=== PATIENT | female | born 1985 | race Caucasian/White ===

== ENCOUNTER 2018-09-07 18:12 | Observation (INO) ==
[2018-09-07 19:11] LABS: Amphetamine Screen,Urine Negative ng/mL (Cutoff=1000); Barbiturate Screen,Urine Negative ng/mL (Cutoff=200); Benzodiazepines Screen,Urine Negative ng/mL (Cutoff=200); Cannabinoid Screen,Urine Negative ng/mL (Cutoff = 50); Cocaine Screen,Urine Negative ng/mL (Cutoff= 300); Opiate Screen,Urine Negative ng/mL (Cutoff=300); Phencyclidine Screen,Urine Negative ng/mL (Cutoff=25)
--- NOTE | 2018-09-07 20:48 | Discharge Summary ---
Date of Encounter: 09/07/18 Time of Encounter: 20:46 - Discharge Diagnosis (1) 28 weeks gestation of Priority: Primary Status: Acute Comments: Follow-up with Dr. Daniels as scheduled labor precautions discussed Discharge home (2) Fall Priority: Secondary Status: Acute Comments: Return for concerns with movement, leakage of fluid, vaginal bleeding, contractions Qualifiers: Encounter type: subsequent encounter Qualified Code(s): W19.XXXD - Unspecif ied fall, subsequent encounter - Discharge Medications Home Medications: Docusate [Colace] 1 cap PO DAILY 09/07/18 [History] Folic Acid 1 tab PO DAILY 09/07/18 [History] Pnv95/Ferrous Fumarate/FA [ Vitamin Tablet] 1 tab PO DAILY 09/07/18 [History] Allergies/Adverse Reactions: Allergy/AdvReac Type Severity Reaction Status Date / Time No Known Allergies Allergy Verified 09/07/18 18:27 Data Procedures and tests throughout hospitalization: Laboratory Tests 09/07/18 09/07/18 18:45 18:45 Volume Blood 0 Urine Opiates Screen Negative Ur Barbiturates Screen Negative Ur Phencyclidine Scrn Negative Ur Amphetamines Screen Negative U Benzodiazepines Scrn Negative Urine Cocaine Screen Negative U Marijuana (THC) Screen Negative Ur Drug Screen Interp See Below Labs on day of discharge: Labs from last 24 hours 09/07/18 09/07/18 18:45 18:45 Volume Blood 0 Urine Opiates Screen Negative Ur Barbiturates Screen Negative Ur Phencyclidine Scrn Negative Ur Amphetamines Screen Negative U Benzodiazepines Scrn Negative Urine Cocaine Screen Negative U Marijuana (THC) Screen Negative Ur Drug Screen Interp See Below Date of admission: 09/07/18 18:12 Discharging clinician: Lacy Vargas Anticipated date of discharge: 09/07/18 - Patient Status Disposition: Home, Self-Care Condition: Good Functional capacity at discharge: independent ambulation Overall status at discharge: patient is progressing back to baseline - Discharge Instructions Follow Up With: Rafael Daniels MD [Partnered Physician] - - Diet and Activity Activity: increase activity as tolerated Diet: regular diet Hospital Course FAN RUNNER Reason for admission: other Discharge diagnosis: other Hospital course: Patient presents status post fall yesterday. She states she was seen in the emergency room and cleared. She reports concerns of movement today. She was monitored for an extended period of time and further blood work was done indicating a negative traumatic fall. She was discharged with instructions to follow-up with Dr. Daniels is scheduled to return for any future concerns Time Attestation: Total time spent providing and/or coordinating discharge services: Time Spent: Less than 30 minutes Exam - Constitutional General appearance IM: A&O X 3 - Respiratory Respiratory exam: Present: CTAB - Cardiovascular Cardiovascular exam IM: Present: RRR, +S1, +S2 - GI/Abdominal GI/Abdominal exam IM: normal bowel sounds, no peritoneal signs - Rectal Rectal exam: deferred - Uterine Tone: Firm - Extremities Exam Extremities exam IM: Present: normal capillary refill, normal inspection, radial pulses palpable and symmetrical - Neurological Exam Neurological exam: alert, CN II-XII intact, normal gait, oriented X3, reflexes normal, no focal deficits, strengths equal and symetr throughout - VTE Reasons for not Prescribing Prophylaxis: Treatment not Indicated - Low risk for VTE
== END 2018-09-07 21:00 | disposition home or self-care (01) ==
LOC: 1NENULAB
PROVIDERS: ADMIT Advanced Practice Midwife; ATTEND Advanced Practice Midwife

== ENCOUNTER → 2018-09-22 15:13 | Observation (INO) ==
[2018-09-22 12:51] LABS: Bilirubin,Urine Negative (Negative); Blood,Urine Negative (Negative); Clarity,Urine Clear (Clear); Color,Urine Yellow (Yellow); Glucose,Urine (UA) Normal (Normal); Ketones,Urine Negative (Negative); Leukocyte Esterase,Urine Trace (Negative); Nitrite,Urine Negative (Negative); Protein,Urine Negative (Neg-Trace); Specific Gravity,Urine 1.005 (1.010-1.025); Urobilinogen,Urine Normal (Normal)
[2018-09-22 12:53] LABS: Bacteria,Urine None Seen per hpf (None-Few); Hyaline Casts,Urine None Seen per lpf (None-Few); RBC,Urine 0-3 per hpf (0-3); Squamous Epithelial Cell,Urine Many per lpf (None-Few); WBC,Urine 0-3 per hpf (0-3)
[2018-09-22 13:01] LABS: Amphetamine Screen,Urine Negative ng/mL (Cutoff=1000); Barbiturate Screen,Urine Negative ng/mL (Cutoff=200); Benzodiazepines Screen,Urine Negative ng/mL (Cutoff=200); Cannabinoid Screen,Urine Negative ng/mL (Cutoff = 50); Cocaine Screen,Urine Negative ng/mL (Cutoff= 300); Opiate Screen,Urine Negative ng/mL (Cutoff=300); Phencyclidine Screen,Urine Negative ng/mL (Cutoff=25)
--- NOTE | 2018-09-22 14:36 | Discharge Summary ---
Date of Encounter: 09/22/18 Time of Encounter: 14:41 - Discharge Diagnosis (1) 30 weeks gestation of Priority: Primary Status: Acute Comments: Admit to observation status post fall yesterday Follow up as scheduled for routine visit with Dr. Daniels the first week of October (2) Status post fall Priority: Secondary Status: Acute Comments: Patient states she fell yesterday around 1400. States she fell on her knee with no trauma directly to the abdomen Patient is Rh negative, awaiting KB for discharge (3) NST (non-stress test) reactive Priority: Secondary Status: Acute Comments: FHR 130 bpm, moderate variability, +15x15 accels, no decels. - Discharge Medications Home Medications: Docusate [Colace] 1 cap PO DAILY 09/07/18 [History] Folic Acid 1 tab PO DAILY 09/07/18 [History] Pnv95/Ferrous Fumarate/FA [ Vitamin Tablet] 1 tab PO DAILY 09/07/18 [History] Allergies/Adverse Reactions: Allergy/AdvReac Type Severity Reaction Status Date / Time No Known Allergies Allergy Verified 09/07/18 18:27 Data Procedures and tests throughout hospitalization: Laboratory Tests 09/22/18 09/22/18 12:39 12:39 Urine Color Yellow Urine Clarity Clear Urine pH 7.0 Ur Specific Gazelle 1.005 L Urine Protein Negative Urine Glucose (UA) Normal Urine Ketones Negative Urine Blood Negative Urine Nitrite Negative Urine Bilirubin Negative Urine Urobilinogen Normal Ur Leukocyte Esterase Trace H Urine Microscopic RBC 0-3 Urine Microscopic WBC 0-3 Ur Squamous Epith Cells Many H Urine Bacteria None Seen Hyaline Casts None Seen Ur Culture Indicated? NO. A Urine Opiates Screen Negative Ur Barbiturates Screen Negative Ur Phencyclidine Scrn Negative Ur Amphetamines Screen Negative U Benzodiazepines Scrn Negative Urine Cocaine Screen Negative U Marijuana (THC) Screen Negative Ur Drug Screen Interp See Below Labs on day of discharge: Labs from last 24 hours 09/22/18 09/22/18 12:39 12:39 Urine Color Yellow Urine Clarity Clear Urine pH 7.0 Ur Specific Gazelle 1.005 L Urine Protein Negative Urine Glucose (UA) Normal Urine Ketones Negative Urine Blood Negative Urine Nitrite Negative Urine Bilirubin Negative Urine Urobilinogen Normal Ur Leukocyte Esterase Trace H Urine Microscopic RBC 0-3 Urine Microscopic WBC 0-3 Ur Squamous Epith Cells Many H Urine Bacteria None Seen Hyaline Casts None Seen Ur Culture Indicated? NO. A Urine Opiates Screen Negative Ur Barbiturates Screen Negative Ur Phencyclidine Scrn Negative Ur Amphetamines Screen Negative U Benzodiazepines Scrn Negative Urine Cocaine Screen Negative U Marijuana (THC) Screen Negative Ur Drug Screen Interp See Below Date of admission: 09/22/18 12:13 Primary care physician: Nnamdi Domínguez MD Discharging clinician: Gloria Phillip Anticipated date of discharge: 09/22/18 - Patient Status Disposition: Home, Self-Care Condition: Good Functional capacity at discharge: independent ambulation Overall status at discharge: patient is back to baseline - Discharge Instructions Follow Up With: Nnamdi Domínguez MD [Primary Care Provider] - Rafael Daniels MD [Partnered Physician] - - Diet and Activity Activity: resume usual activities as tolerated Diet: regular diet Hospital Course SYSTEM SUPPORT ANALYST Hospital course: Olga is a at 30 weeks and 2 days who comes to labor and delivery after falling yesterday afternoon around 2:00. She endorses decreased movement today, denies vaginal bleeding and leakage of fluid. Patient does state she has an anterior placenta, we discussed that movements may not be as easily felt by her due to this. She states she fell and did not fall directly on her abdomen she did fall onto her knee. She has a follow-up appointment with Dr. Daniels the first week of October. Your is unremarkable and we are awaiting results of her Kleihauer-Betke in order to discharge her home. Time Attestation: Total time spent providing and/or coordinating discharge services: Time Spent: Less than 30 minutes Exam - Constitutional General appearance IM: cooperative, A&O X 3, pleasant, no acute distress, answers questions appropriately - Respiratory Respiratory exam: Present: CTAB - Cardiovascular Cardiovascular exam IM: Present: RRR, +S1, +S2 - GI/Abdominal GI/Abdominal exam IM: normal bowel sounds, soft - Rectal Rectal exam: deferred - Extremities Exam Extremities exam IM: Present: normal capillary refill - Neurological Exam Neurological exam: alert, normal gait, oriented X3 - VTE Reasons for not Prescribing Prophylaxis: Treatment not Indicated - Low risk for VTE
== END | disposition home or self-care (01) ==
LOC: 1NENULAB
PROVIDERS: ADMIT Registered Nurse; ATTEND Registered Nurse

== ENCOUNTER → 2018-11-13 14:07 | Observation (INO) ==
--- NOTE | 2018-11-13 11:37 | OB/GYN Progress Note ---
Date of Encounter: 11/13/18 Time of Encounter: 11:34 - Assessment and Plan (1) 37 weeks gestation of Current Visit: Yes Status: Acute admitted for observation Dr. Lorenzo notified of patient's complaints and status Will monitor for 4 hours post fall (2) Rh negative state in antepartum period Current Visit: Yes Status: Acute KB coags CBC collected (3) Fall Current Visit: No Status: Acute KB NST Coags Qualifiers: Encounter type: subsequent encounter Qualified Code(s): W19.XXXD - Unspecified fall, subsequent encounter Subjective - Subjective Principal diagnosis: Fall Interval history: Patient is a 33 y/o at 37w5d presents to labor and delivery with complaints of tripping over her purse strap and falling to her hands and knees around 1000. Patient denies hitting abdomen. Denies LOF, VB or contractions. Patient reports +FM. Patient denies any complications with but is scheduled for a repeat c/s on 11/27/18. Patient's blood type is O negative. Antepartum ROS: movement normal, no loss of fluid, no vaginal bleeding, no contractions Objective - Exam FHR: auscultation normal, category 1 FHR comments: 135 bpm moderate variability +15x15 accels no decels noted. No contractions noted. Cat. 1 tracing Auscultation: bilateral: normal Abdomen: Present: normal appearance, soft, gravid Uterus: Present: normal (abrasions noted on bilateral knees, no active bleeding noted. )
[2018-11-13 12:07] LABS: INR 0.8; Prothrombin Time 9.4 Seconds (9.4-12.1)
[2018-11-13 12:10] LABS: Activated Partial Thrombo Time 26.6 Seconds (26.0-36.0)
[2018-11-13 12:17] LABS: Amphetamine Screen,Urine Negative ng/mL (Cutoff=1000); Barbiturate Screen,Urine Negative ng/mL (Cutoff=200); Benzodiazepines Screen,Urine Negative ng/mL (Cutoff=200); Cannabinoid Screen,Urine Negative ng/mL (Cutoff = 50); Cocaine Screen,Urine Negative ng/mL (Cutoff= 300); Opiate Screen,Urine Negative ng/mL (Cutoff=300); Phencyclidine Screen,Urine Negative ng/mL (Cutoff=25)
[2018-11-13 14:12] LABS: Basophils % 0.3 %; Eosinophils # 0.1 K/mcL (0.0-0.6); Eosinophils % 0.7 %; Hemoglobin 12.6 g/dL (11.5-15.4); Immature Granulocytes % 0.1 % (0-4); Lymphocytes # 1.3 K/mcL (0.6-4.6); Lymphocytes % 17.8 %; Mean Corpuscular HGB Conc 33.2 g/dL (31.6-35.5); Mean Corpuscular Hemoglobin 29.4 pg (28.0-33.3); Mean Corpuscular Volume 88.8 fL (83.0-100.0); Mean Platelet Volume 11.5 fL (9.4-12.4); Monocytes # 0.5 K/mcL (0.0-1.3); Monocytes % 6.6 %; Neutrophils # 5.5 K/mcL (1.6-8.9); Platelet Count 231 K/mcL (140-400); Red Blood Count 4.28 M/mcL (3.82-4.97); Red Cell Distribution Width 12.5 % (11.5-14.5); Segmented Neutrophils % 74.5 %
== END | disposition home or self-care (01) ==
LOC: 1NENULAB
PROVIDERS: ADMIT Advanced Practice Midwife; ATTEND Advanced Practice Midwife

== ENCOUNTER 2018-11-24 10:10 | Inpatient (IN) ==
[2018-11-24] MEDS ORDERED: Ondansetron 4 MG/2 ML VIAL IVP PRN ×4 (10:56→18:42)
[2018-11-24] MEDS ORDERED: Famotidine 20 MG/2 ML VIAL IVP PRN (10:56)
[2018-11-24] MEDS ORDERED: Metoclopramide 10 MG/2 ML VIAL IVP ONE (10:56)
[2018-11-24] MEDS ORDERED: *HR* Nalbuphine 10 MG/ML AMPUL IVP PRN (10:56)
[2018-11-24] MEDS ORDERED: Ringers Solution, Lactated 1,000 ML IVC ONE (10:56)
[2018-11-24] MEDS ORDERED: Naloxone 0.4 MG/ML INJ IVP PRN (10:56)
[2018-11-24] MEDS ORDERED: CeFAZolin Syr 3,000MG/30 ML 3,000 MG/30 ML SYRINGE IVPB ONE (10:56)
[2018-11-24] MEDS ORDERED: Oxytocin 20 units/ LR 1000 mL 20 UNIT/1,000 ML BAG IVC SCH ×2 (11:00→17:45)
[2018-11-24] MEDS ORDERED: Ringers Solution, Lactated 1,000 ML IVC SCH ×2 (11:00→17:45)
[2018-11-24 12:00] LABS: Basophils % 0.3 %; Eosinophils % 0.4 %; Hematocrit 40.8 % (35.3-44.9); Hemoglobin 13.4 g/dL (11.5-15.4); Immature Granulocytes % 0.2 % (0-4); Lymphocytes # 1.6 K/mcL (0.6-4.6); Lymphocytes % 16.1 %; Mean Corpuscular HGB Conc 32.8 g/dL (31.6-35.5); Mean Corpuscular Hemoglobin 28.9 pg (28.0-33.3); Mean Corpuscular Volume 87.9 fL (83.0-100.0); Mean Platelet Volume 11.4 fL (9.4-12.4); Monocytes # 0.6 K/mcL (0.0-1.3); Monocytes % 6.4 %; Neutrophils # 7.4 K/mcL (1.6-8.9); Platelet Count 237 K/mcL (140-400); Red Blood Count 4.64 M/mcL (3.82-4.97); Red Cell Distribution Width 12.6 % (11.5-14.5); Segmented Neutrophils % 76.6 %
[2018-11-24] MEDS ORDERED: Penicillin G Potassium 5,000,000 UNIT in 0.9 % Sodium Chloride Mini Bag 100 ML IVPB ONE (12:00)
[2018-11-24 12:06] LABS: Protein/Creatinine Ratio,Urine 0.16 mg/mg (0.00-0.20)
[2018-11-24 12:06] LABS: Amphetamine Screen,Urine Negative ng/mL (Cutoff=1000); Barbiturate Screen,Urine Negative ng/mL (Cutoff=200); Benzodiazepines Screen,Urine Negative ng/mL (Cutoff=200); Cannabinoid Screen,Urine Negative ng/mL (Cutoff = 50); Cocaine Screen,Urine Negative ng/mL (Cutoff= 300); Opiate Screen,Urine Negative ng/mL (Cutoff=300); Phencyclidine Screen,Urine Negative ng/mL (Cutoff=25)
[2018-11-24 12:31] LABS: Alanine Aminotransferase 6 Units/L (7-52); Aspartate Amino Transferase 16 Units/L (13-39); BUN/Creatinine Ratio 31 (6-26); Blood Urea Nitrogen 14 mg/dL (6-20); Lactate Dehydrogenase 172 Units/L (140-271); Uric Acid 3.5 mg/dL (2.3-7.6); eGFR For Non-African Americans > 60 (> 60)
[2018-11-24] MEDS ORDERED: *HR* Morphine Sulfate/PF 10 MG/10 ML AMPUL ONE (12:59)
[2018-11-24] MEDS ORDERED: *HR* FentaNYL (PF) 100 MCG/2 ML VIAL ONE (12:59)
--- NOTE | 2018-11-24 13:17 | OB/GYN History & Physical ---
Date of Encounter: 11/24/18 Time of Encounter: 13:16 Assessment and Plan (1) 39 weeks gestation of Current visit: Yes Status: Acute 33 y/o @ 39+3 weeks, h/o PC/S, in labor (cervix changed from FT to 3cm) Plan: RC/S discussed with the patient and consents signed, Anesthesia contacted History of Present Illness HPI: Ms. Whittaker is a 33 year old female @ 39+2 weeks wo presents to the office with ctxs since this AM. She reports ctxs every 7 mins, no LOF, VB or ctxs, feels good FM. She has a h/o of a PC/S for failure to progress. She desires a repeat . Past Med Surg Social Fam HX - Past Medical History Medical history: no medical history Psychiatric history: no psych history - Past Surgical History Surgical History: Additional surgical history: lap band and removal of lap band - Social History Smoking Status: Never smoker Smokeless Tobacco Status: No Alcohol use: none Drug use: none - Family History Mother Living Status: Still Living Hx Family Cardiac Disorders: Yes (hypertension, a fib) Hx Family Respiratory Disorders: No Hx Family Cancer: No Hx Family GI Disorders: No Hx Family Genitourinary Disorders: No Hx Family Endocrine Disorder: No Hx Family Musculoskeletal Disorders: No Hx Family Neuromuscular Disorders: No Hx Family Neurologic Disorders: No Hx Family HEENT Disorders: No Hx Family Autoimmune Disorders: No Hx Family Reproductive Disorders: No Hx Family Psychosocial Disorders: No Hx Family Medical Disorders: Yes (blood clots with filter placement) Obstetrical History - Pregnancies : 3 Para: 1 Medications and Allergies Docusate [Colace] 1 cap PO DAILY PRN 09/07/18 [History] Folic Acid 1 tab PO DAILY 09/07/18 [History] Pnv95/Ferrous Fumarate/FA [ Vitamin Tablet] 1 tab PO DAILY 09/07/18 [History] Allergy/AdvReac Type Severity Reaction Status Date / Time No Known Allergies Allergy Verified 09/07/18 18:27 Review of System OB All systems PM: reviewed and no additional remarkable complaints except as stated Exam - Cervix Dilation: 3 Results Result Diagrams: 11/24/18 10:57 11/24/18 11:35 Abnormal lab results Creatinine 0.45 mg/dL (0.60-1.20) L 11/24/18 11:35 BUN/Creatinine Ratio 31 (6-26) H 11/24/18 11:35 ALT 6 Units/L (7-52) L 11/24/18 11:35 Urine Total Protein 28 mg/dL (1-14) H 11/24/18 11:44 All other labs normal. - VTE Reasons for not Prescribing Prophylaxis: Treatment not Indicated - Low risk for VTE
--- NOTE | 2018-11-24 13:19 | Anesthesia Evaluation PreOp ---
Date of Encounter: 11/24/18 Time of Encounter: 13:17 - Past History Planned Operation: repeat C section Cardiac History: Denies any Significant Hx Pulmonary History: Denies Any Significant HX KAITARA TARAKA History: Denies Any Significant HX Other Medical History: GERD Anesthesia History: No Prior Anesthetic Complications, Past Anesthesia (c/s) : Yes Test: Positive Alcohol Use: none Drug use: none Medications and Allergies Docusate [Colace] 1 cap PO DAILY PRN 09/07/18 [History] Folic Acid 1 tab PO DAILY 09/07/18 [History] Pnv95/Ferrous Fumarate/FA [ Vitamin Tablet] 1 tab PO DAILY 09/07/18 [History] Allergy/AdvReac Type Severity Reaction Status Date / Time No Known Allergies Allergy Verified 09/07/18 18:27 - Meds/Allergy Pre-op Review Medications Reviewed: Yes Allergies Reviewed: Yes Beta Blockers on Current Med List: No Anesthesia Results - Labs 11/24/18 10:57 11/24/18 11:35 Anesthesia Exam - HEENT Pupil (Motor): Pupils equal Mallampati: II Teeth: Normal Oral Opening: Greater than 3 - KAITARA TARAKA LOC: Oriented KAITARA TARAKA Motor: Normal RUE, Normal LUE, Normal RLE, Normal LLE, Normal Face KAITARA TARAKA Sensory: Normal: RUE, LUE, RLE, LLE, Face - Cardiac Rhythm: Regular Murmur: None - Pulmonary Breath Sounds: bilateral Clear Respiratory Effort: Symmetrical Anesthesia Assess/Plan ASA Score: 2 Level of consciousness: Cooperative Anesthetic Plan: Spinal (risks discussed, questions answered, consented) Monitoring Plan: Standard Monitors Recovery Plan: PACU
[2018-11-24] MEDS ORDERED: Lidocaine -MPF 2% 5 ML VIAL ONE ×2 (14:00→14:41)
[2018-11-24] MEDS ORDERED: *HR* Oxytocin 10 UNIT/ML VIAL IM ONE (14:00)
[2018-11-24] MEDS ORDERED: *HR* Propofol 200 MG/20 ML VIAL IVP ONE (14:13)
[2018-11-24] MEDS ORDERED: Ondansetron 4 MG/2 ML VIAL ONE (14:55)
[2018-11-24] MEDS ORDERED: Dexamethasone 4 MG/ML VIAL ONE (14:55)
[2018-11-24] MEDS ORDERED: *HR* OxyCODONE Immed Rel 5 MG TABLET PO PRN (15:01)
[2018-11-24] MEDS ORDERED: Acetaminophen IV 1,000 MG/100 ML INFUS..BTL IVPB ONE (15:01)
[2018-11-24] MEDS ORDERED: *HR* Succinylcholine 200 MG/10 ML VIAL IVP ONE (15:29)
[2018-11-24] MEDS ORDERED: Penicillin G Potassium 2,500,000 UNIT in 0.9 % Sodium Chloride 100 ML IVPB SCH (16:00)
--- NOTE | 2018-11-24 16:13 | OB/GYN Procedure Note ---
Section - Date of procedure: 11/24/18 Preop diagnosis: desires repeat Procedure: repeat low transverse Surgeon: Amanda Lorenzo Quantitated Blood Loss: 400 Was there an assistant center manager present: Yes Leather Stitcher: Colleen García Anesthesiologist: Elvin Guillen Water Pipe Installer: Colten Negron Anesthesia Type: General section complications: none Disposition: L&D Recovery Room Specimens: Placenta, Cord blood - (s) Infant A Delivery Date: 11/24/18 Delivery Time: 14:38 Presentation: vertex Gender: Male Gram Weight: 4.655 kg at 1 minute: 8 at 5 minutes: 9 Shoulder Dystocia: not encountered Specimens collected: cord blood Placenta: complete extraction Cord: 3 umbilical vessels - Narrative Narrative: The patient was brought to the operating room where spinal anesthesia was attempted without success. She was prepped and draped before she was placed under general anesthesia. A Pfannenstiel incision was made and carried sharply down to the level of the fascia. The fascia was incised transversely. The fascia was dissected away from the underlying rectus muscles. With blunt dissection, the rectus muscles were divided in the midline. The peritoneum was entered bluntly. A bladder retractor was placed to protect the bladder. The bladder was noted to be adhesed mainly to the right side of the uterus. A transverse incision was made across the lower uterine segment. The incision was manually extended. Clear amniotic fluid was encountered. The infant's head was pulled up and delivered as were the shoulders and body. The mouth and oropharynx were suctioned. The cord was clamped and cut. The infant was passed off to the waiting nurse in satisfactory condition. The placenta was extracted completely and found to be intact. The uterus was explored and found to be empty. The uterus was delivered through the abdominal incision and massaged vigorously. Intravenous Pitocin was administered. The margins of the uterine incision were closed primarily with a running locking stitch of 0 Vicryl with adequate hemostasis. Secondary running locking stitch was placed for extra strength to the wound. The uterus was returned to its proper anatomic position in the abdomen. The fascia was closed with a simple running stitch of 0 vicryl. The subcutaneous tissue was closed with 3-0 vicryl after irrigation. The skin was closed with running subcuticular of 4-0 vicryl. The patient was brought to the recovery room in satisfactory condition.
[2018-11-24] MEDS: *HR* HYDROmorphone (PF) 1 MG/ML SYRINGE IVP PRN ×2 (16:27→17:03)
[2018-11-24] MEDS ORDERED: Ondansetron 4 MG/2 ML VIAL IVP ONE (17:05)
[2018-11-24] MEDS ORDERED: Simethicone 80 MG TAB.CHEW PO PRN (17:45)
[2018-11-24] MEDS ORDERED: Sennosides 8.6 MG TABLET PO PRN (17:45)
[2018-11-24] MEDS ORDERED: *HR* OxyCODONE/APAP 5/325 TABLET PO PRN (17:45)
[2018-11-24] MEDS ORDERED: Metoclopramide 10 MG/2 ML VIAL IVP PRN (17:45)
[2018-11-24] MEDS ORDERED: *HR* Promethazine 25 MG/ML VIAL IVP PRN (18:43)
[2018-11-24] MEDS ORDERED: *HR* HYDROmorphone 2 MG/ML SYRINGE IVP PRN (18:45)
--- NOTE | 2018-11-24 19:45 | Anesthesia Evaluation Post Op ---
Date of Encounter: 11/24/18 Time of Encounter: 19:40 - Vital Signs Vital Signs: Vital Signs/O2 Sat, Most Current Temp Pulse Resp BP Pulse Ox 98.2 F 87 16 120/72 96 11/24/18 18:50 11/24/18 18:50 11/24/18 18:50 11/24/18 18:50 11/24/18 18:50 - Lungs Lungs: Clear Ascult./Percussion - Airway Airway: Non-obstructed - Cardiovascular Regular Rate - Mental Status Mental Status: Alert & Oriented, Answers Appropriately - Pain Pain Scale: 4 Pain Scale used: Numeric (1 - 10) - Nausea Vomiting Nausea Vomiting: Present (second PACU dose of zofran ineffective. On PP and onsidering SOLIS bhatt) - Hydration Hydration: NPO, Clements catheter - Discharge PostOp Status: Transfer Patient to floor (VSS, pain manageable, nausea cont'. phenergan now)
[2018-11-24] MEDS: *HR* HYDROcodone/Acet 5/325 mg TABLET PO PRN (21:41)
[2018-11-24] MEDS: Ibuprofen 600 MG TABLET PO PRN (22:40)
[2018-11-25] MEDS: *HR* HYDROcodone/Acet 5/325 mg TABLET PO PRN ×2 (02:30→07:36)
[2018-11-25 07:32] LABS: Basophils % 0.2 %; Eosinophils % 0.1 %; Hematocrit 31.9 % (35.3-44.9); Immature Granulocytes % 0.3 % (0-4); Lymphocytes # 1.6 K/mcL (0.6-4.6); Lymphocytes % 14.5 %; Mean Corpuscular HGB Conc 33.2 g/dL (31.6-35.5); Mean Corpuscular Hemoglobin 29.5 pg (28.0-33.3); Mean Corpuscular Volume 88.9 fL (83.0-100.0); Mean Platelet Volume 11.2 fL (9.4-12.4); Monocytes % 9.2 %; Neutrophils # 8.4 K/mcL (1.6-8.9); Platelet Count 180 K/mcL (140-400); Red Blood Count 3.59 M/mcL (3.82-4.97); Red Cell Distribution Width 12.7 % (11.5-14.5); Segmented Neutrophils % 75.7 %
[2018-11-25] MEDS: Prenatal Vit/FA 1 EACH TABLET PO SCH (07:36)
[2018-11-25 07:38] LABS: Hemoglobin 10.6 g/dL (11.5-15.4)
--- NOTE | 2018-11-25 09:45 | OB/GYN Progress Note ---
Date of Encounter: 11/25/18 Time of Encounter: 09:39 - Assessment and Plan (1) Status post delivery Current Visit: Yes Status: Acute Continue routine /post-op care. Tolerating regular diet. Clements has been discontinued, patient up in chair. She states she is having difficulty controlling pain. Will adjust pain medication and plan for discharge tomorrow as long as pain is controlled. (2) Breast feeding status of mother Current Visit: Yes Status: Acute support as needed. (3) anemia Current Visit: Yes Status: Acute Continue iron daily (4) Rh negative state in antepartum period Current Visit: No Status: Acute Rhogam if needed. Subjective - Subjective Principal diagnosis: Status post repeat section Patient reports: appetite normal, pain well controlled, ambulating normally : doing well, nursing well Objective - Vital Signs Latest vital signs: Vital Signs Temp Pulse Resp BP Pulse Ox 11/25/18 08:09 98.2 F 81 16 117/75 96 11/25/18 06:00 98.3 F 78 14 117/55 98 11/25/18 00:15 98.4 F 88 14 101/58 96 11/24/18 21:35 98 F 81 16 116/80 97 11/24/18 20:30 97.8 F 91 16 128/92 100 11/24/18 19:20 97.8 F 87 16 133/81 96 11/24/18 18:50 98.2 F 87 16 120/72 96 11/24/18 18:15 98.0 F 89 14 130/90 95 Intake and Output 11/24/18 11/25/18 11/25/18 23:59 07:59 15:59 Output Total 1100 / 1100 100 / 100 Balance -1100 / -1100 -100 / -100 Output: Urine 100 / 100 Catheter 1100 / 1100 Other: Weight 126.8 kg 122.47 kg Patient Weight 11/25/18 23:59 Weight 122.47 kg - Exam Lungs: bilateral: normal Chest: Normal S1, Normal S2 Extremities: Present: normal Abdomen: Present: normal appearance, soft Incision: Present: dressed (MARYELLEN with drainage) Uterus: Present: normal, firm Fundal Height: 0 (@U) - Labs Labs: Laboratory Results - last 24 hr 11/24/18 11/24/18 11/24/18 10:22 10:57 11:35 WBC 9.7 RBC 4.64 Hgb 13.4 Hct 40.8 MCV 87.9 MCH 28.9 MCHC 32.8 RDW 12.6 Plt Count 237 MPV 11.4 Immature Gran % 0.2 Seg Neutrophils % 76.6 Lymphocytes % 16.1 Monocytes % 6.4 Eosinophils % 0.4 Basophils % 0.3 Neutrophils # 7.4 Lymphocytes # 1.6 Monocytes # 0.6 Eosinophils # 0.0 Basophils # 0.0 BUN 14 Creatinine 0.45 L Est GFR ( Amer) > 60 Est GFR (Non-Af Amer) > 60 BUN/Creatinine Ratio 31 H Uric Acid 3.5 AST 16 ALT 6 L Lactate Dehydrogenase 172 Urine Creatinine Protein/Creatinin Ratio Urine Total Protein Urine Opiates Screen Negative Ur Barbiturates Screen Negative Ur Phencyclidine Scrn Negative Ur Amphetamines Screen Negative U Benzodiazepines Scrn Negative Urine Cocaine Screen Negative U Marijuana (THC) Screen Negative Ur Drug Screen Interp See Below Screen Baby's Blood Type Mother's Blood Type Rhogam Indicated Rhogam Req for Mother 11/24/18 11/24/18 11/25/18 11:44 15:10 07:07 WBC 11.1 RBC 3.59 L Hgb 10.6 L D Hct 31.9 L MCV 88.9 MCH 29.5 MCHC 33.2 RDW 12.7 Plt Count 180 MPV 11.2 Immature Gran % 0.3 Seg Neutrophils % 75.7 Lymphocytes % 14.5 Monocytes % 9.2 Eosinophils % 0.1 Basophils % 0.2 Neutrophils # 8.4 Lymphocytes # 1.6 Monocytes # 1.0 Eosinophils # 0.0 Basophils # 0.0 BUN Creatinine Est GFR ( Amer) Est GFR (Non-Af Amer) BUN/Creatinine Ratio Uric Acid AST ALT Lactate Dehydrogenase Urine Creatinine 178 Protein/Creatinin Ratio 0.16 Urine Total Protein 28 H Urine Opiates Screen Ur Barbiturates Screen Ur Phencyclidine Scrn Ur Amphetamines Screen U Benzodiazepines Scrn Urine Cocaine Screen U Marijuana (THC) Screen Ur Drug Screen Interp Screen NEGATIVE Baby's Blood Type A RH POSITIVE Mother's Blood Type A RH NEGATIVE Rhogam Indicated YES Rhogam Req for Mother 1
[2018-11-25] MEDS: Ibuprofen 600 MG TABLET PO PRN ×3 (10:27→23:48)
[2018-11-25] MEDS ORDERED: Rho Immune Globulin 1,500 UNIT SYRINGE IM ONE (10:42)
[2018-11-25] MEDS: *HR* HYDROcodone/Acet 10/325 mg TABLET PO PRN ×3 (11:34→23:48)
[2018-11-26] MEDS: Prenatal Vit/FA 1 EACH TABLET PO SCH (08:06)
[2018-11-26] MEDS: *HR* HYDROcodone/Acet 5/325 mg TABLET PO PRN ×2 (08:06→14:45)
--- NOTE | 2018-11-26 11:45 | OB/GYN Progress Note ---
Date of Encounter: 11/26/18 Time of Encounter: 11:43 - Assessment and Plan (1) Breast feeding status of mother Current Visit: Yes Status: Acute (2) Status post delivery Current Visit: Yes Status: Acute Stable POD #2 Continue current management Anticipate discharge tomorrow Subjective - Subjective Interval history: Pt states feels tired, pain well managed on po pain medication, tolerates diet, breast and bottle feeding. Patient reports: appetite normal, voiding normally, pain well controlled, ambulating normally Standard: nursing well, bottle feeding Objective - Vital Signs Latest vital signs: Vital Signs Temp Pulse Resp BP Pulse Ox 11/26/18 08:50 16 11/26/18 08:01 97.6 F 87 16 140/100 97 11/25/18 20:20 97.7 F 97 18 115/74 98 Intake and Output 11/25/18 11/26/18 11/26/18 23:59 07:59 15:59 Output Total 450 / 450 Balance -450 / -450 Output: Urine 450 / 450 - Exam Lungs: bilateral: normal Chest: Normal S1, Normal S2 Extremities: Present: normal Abdomen: Present: normal appearance, soft Incision: Present: dressed (MARYELLEN) Uterus: Present: firm (U)
[2018-11-26] MEDS: Ibuprofen 600 MG TABLET PO PRN (17:13)
[2018-11-27] MEDS: *HR* HYDROcodone/Acet 10/325 mg TABLET PO PRN ×2 (00:45→08:31)
[2018-11-27] MEDS: Ibuprofen 600 MG TABLET PO PRN (08:31)
[2018-11-27] MEDS: Prenatal Vit/FA 1 EACH TABLET PO SCH (08:32)
--- NOTE | 2018-11-27 11:01 | Discharge Summary ---
Date of Encounter: 11/27/18 Time of Encounter: 10:52 - Discharge Diagnosis (1) Status post delivery Priority: Primary Status: Acute Comments: S/P delivery day 3 Pain well controlled Lochia light and without clots VSS Tolerating regular diet; passing flatus Voiding without difficulty Breast feeding and bottle feeding Discharge home today POC per consult with Dr Michelle (2) Breast feeding status of mother Priority: Secondary Status: Acute (3) anemia Priority: Secondary Status: Acute - Discharge Medications Prescriptions: New Ibuprofen [Motrin] 600 mg PO Q6HR PRN #30 tablet PRN Reason: Cramping Breast Pump [BREAST PUMP] 1 each .ROUTE AD #1 each Docusate [Colace] 100 mg PO BID #30 capsule Ferrous Sulfate 325 mg PO DAILY #90 tablet HYDROcodone/Acet 5/325 mg [[place] 5-325 mg] 1 tab PO Q6H PRN 5 Days #20 tablet PRN Reason: Moderate Pain 4-6 Simethicone [Gas-X] 80 mg PO TID PRN tab.chew PRN Reason: Dyspepsia Continue Pnv95/Ferrous Fumarate/FA [ Vitamin Tablet] 1 tab PO DAILY Discontinued Folic Acid 1 tab PO DAILY Docusate [Colace] 1 cap PO DAILY PRN PRN Reason: Constipation Home Medications: Pnv95/Ferrous Fumarate/FA [ Vitamin Tablet] 1 tab PO DAILY 09/07/18 [History] Breast Pump [BREAST PUMP] 1 each .ROUTE AD #1 each 11/27/18 [Rx] Docusate [Colace] 100 mg PO BID #30 capsule 11/27/18 [Rx] Ferrous Sulfate 325 mg PO DAILY #90 tablet 11/27/18 [Rx] HYDROcodone/Acet 5/325 mg [[place]on 5-325 mg] 1 tab PO Q6H PRN 5 Days #20 tablet 11/27/18 [Rx] Ibuprofen [Motrin] 600 mg PO Q6HR PRN #30 tablet 11/27/18 [Rx] Simethicone [Gas-X] 80 mg PO TID PRN tab.chew 11/27/18 [Rx] Allergies/Adverse Reactions: Allergy/AdvReac Type Severity Reaction Status Date / Time oxycodone [From Percocet] AdvReac Vomiting Verified 11/24/18 17:47 Data Procedures and tests throughout hospitalization: Laboratory Tests 11/24/18 11/24/18 11/24/18 10:22 10:57 11:35 WBC 9.7 RBC 4.64 Hgb 13.4 Hct 40.8 MCV 87.9 MCH 28.9 MCHC 32.8 RDW 12.6 Plt Count 237 MPV 11.4 Immature Gran % 0.2 Seg Neutrophils % 76.6 Lymphocytes % 16.1 Monocytes % 6.4 Eosinophils % 0.4 Basophils % 0.3 Neutrophils # 7.4 Lymphocytes # 1.6 Monocytes # 0.6 Eosinophils # 0.0 Basophils # 0.0 BUN 14 Creatinine 0.45 L Est GFR ( Amer) > 60 Est GFR (Non-Af Amer) > 60 BUN/Creatinine Ratio 31 H Uric Acid 3.5 AST 16 ALT 6 L Lactate Dehydrogenase 172 Urine Creatinine Protein/Creatinin Ratio Urine Total Protein Urine Opiates Screen Negative Ur Barbiturates Screen Negative Ur Phencyclidine Scrn Negative Ur Amphetamines Screen Negative U Benzodiazepines Scrn Negative Urine Cocaine Screen Negative U Marijuana (THC) Screen Negative Ur Drug Screen Interp See Below Screen Baby's Blood Type Mother's Blood Type Rhogam Indicated Rhogam Req for Mother 11/24/18 11/24/18 11/25/18 11:44 15:10 07:07 WBC 11.1 RBC 3.59 L Hgb 10.6 L D Hct 31.9 L MCV 88.9 MCH 29.5 MCHC 33.2 RDW 12.7 Plt Count 180 MPV 11.2 Immature Gran % 0.3 Seg Neutrophils % 75.7 Lymphocytes % 14.5 Monocytes % 9.2 Eosinophils % 0.1 Basophils % 0.2 Neutrophils # 8.4 Lymphocytes # 1.6 Monocytes # 1.0 Eosinophils # 0.0 Basophils # 0.0 BUN Creatinine Est GFR ( Amer) Est GFR (Non-Af Amer) BUN/Creatinine Ratio Uric Acid AST ALT Lactate Dehydrogenase Urine Creatinine 178 Protein/Creatinin Ratio 0.16 Urine Total Protein 28 H Urine Opiates Screen Ur Barbiturates Screen Ur Phencyclidine Scrn Ur Amphetamines Screen U Benzodiazepines Scrn Urine Cocaine Screen U Marijuana (THC) Screen Ur Drug Screen Interp Screen NEGATIVE Baby's Blood Type A RH POSITIVE Mother's Blood Type A RH NEGATIVE Rhogam Indicated YES Rhogam Req for Mother 1 Date of admission: 11/24/18 10:10 Primary care physician: Nnamdi Domínguez MD Discharging clinician: Lacy Winn Anticipated date of discharge: 11/27/18 - Patient Status Disposition: Home, Self-Care Condition: Good Functional capacity at discharge: independent ambulation Overall status at discharge: patient is progressing back to baseline - Discharge Instructions Follow Up With: Nnamdi Domínguez MD [Primary Care Provider] - Amanda Lorenzo MD [Partnered Physician] - - Diet and Activity Activity: increase activity as tolerated Diet: regular diet Hospital Course Reason for admission: IUP at term Delivery: section Episiotomy: none Laceration: none Other procedures: none complications: none Discharge diagnosis: IUP at term delivered baby: male Time Attestation: Total time spent providing and/or coordinating discharge services: Time Spent: Less than 30 minutes - VTE Reasons for not Prescribing Prophylaxis: Treatment not Indicated - Low risk for VTE Documentation of Mechanical Device: Intermittent pneumatic compression device Exam - Constitutional Vitals: Temp Pulse Resp BP Pulse Ox 98.1 F 92 16 135/93 100 11/27/18 08:17 11/27/18 08:17 11/27/18 08:17 11/27/18 08:17 11/27/18 08:17 General appearance IM: cooperative, A&O X 3, pleasant - Respiratory Respiratory exam: Present: CTAB - Cardiovascular Cardiovascular exam IM: Present: RRR, +S1, +S2 - GI/Abdominal GI/Abdominal exam IM: normal bowel sounds, soft Incision: normal, dry, intact - Rectal Rectal exam: deferred - Uterine Tone: Firm Uterus Position: At Umbilicus, Midline - Extremities Exam Extremities exam IM: Present: normal capillary refill, normal inspection, radial pulses palpable and symmetrical - Neurological Exam Neurological exam: alert, oriented X3
[2018-11-28 08:06] VITALS: BP 117/69
== END 2018-11-27 11:32 | disposition home or self-care (01) | DRG 540 ==
LOC: 1NENULAB → OBSVTOIN 10:10 → 1NENUOBS 18:53
PROVIDERS: ADMIT Advanced Practice Midwife; ATTEND Advanced Practice Midwife

== ENCOUNTER 2021-01-22 23:26 | Observation (INO) ==
[2021-01-22] MEDS ORDERED: Ringers Solution, Lactated 1,000 ML ONE (23:53)
[2021-01-23 00:17] LABS: Protein/Creatinine Ratio,Urine 0.29 mg/mg (0.00-0.20)
[2021-01-23 00:23] LABS: Alanine Aminotransferase 5 Units/L (7-52); Aspartate Amino Transferase 13 Units/L (13-39); BUN/Creatinine Ratio 33 (6-26); Blood Urea Nitrogen 14 mg/dL (6-20); Lactate Dehydrogenase 130 Units/L (140-271); eGFR For African Americans > 60 (> 60); eGFR For Non-African Americans > 60 (> 60)
[2021-01-23 00:36] LABS: Basophils % 0.4 %; Eosinophils # 0.1 K/mcL (0.0-0.6); Eosinophils % 0.7 %; Hematocrit 37.1 % (35.3-44.9); Hemoglobin 12.1 g/dL (11.5-15.4); Immature Granulocytes % 0.4 % (0-4); Lymphocytes # 2.1 K/mcL (0.6-4.6); Lymphocytes % 20.2 %; Mean Corpuscular HGB Conc 32.6 g/dL (31.6-35.5); Mean Corpuscular Hemoglobin 28.7 pg (28.0-33.3); Mean Corpuscular Volume 87.9 fL (83.0-100.0); Mean Platelet Volume 11.2 fL (9.4-12.4); Monocytes # 0.8 K/mcL (0.0-1.3); Monocytes % 7.5 %; Neutrophils # 7.2 K/mcL (1.6-8.9); Platelet Count 237 K/mcL (140-400); Red Blood Count 4.22 M/mcL (3.82-4.97); Red Cell Distribution Width 12.6 % (11.5-14.5); Segmented Neutrophils % 70.8 %; White Blood Count 10.2 K/mcL (4.3-11.1)
== END 2021-01-23 02:00 | disposition home or self-care (01) ==
LOC: 1NENULAB
PROVIDERS: ADMIT Obstetrics & Gynecology; ATTEND Obstetrics & Gynecology